=== PATIENT | male | born 1980 | race African-American/Black ===

== ENCOUNTER 2017-05-24 20:30 | Inpatient (IN) | payer OTHER ==
[~2017-05-24] VITALS: Ht 172.7 cm; Wt 98.7 kg
[2017-05-24 21:21] LABS: AMPHETAMINE NEGATIVE (500 ng/mL); BARBITURATES NEGATIVE (200 ng/mL); BENZODIAZEPINES NEGATIVE (150 ng/mL); BUPRENORPHINE NEGATIVE (10 ng/mL); COCAINE NEGATIVE (150 ng/mL); METHADONE NEGATIVE (200 ng/mL); METHAMPHETAMINE NEGATIVE (500 ng/mL); OPIATES (MORPHINE) NEGATIVE (100 ng/mL); OXYCODONE NEGATIVE (100 ng/mL); PHENCYCLIDINE NEGATIVE (25 ng/mL); PROPOXYPHENE NEGATIVE (300 ng/mL); THC CANNABINOIDS NEGATIVE (50 ng/mL); TRICYCLIC ANTIDEPRESSANTS NEGATIVE (300 ng/mL)
[2017-05-24 21:32] LABS: HEMATOCRIT 40.5 % (38.0-50.0); MCH 28.9 PG (29.0-34.0); MCHC 34.6 G/DL (30.0-36.0); MCV 83.7 FL (86-99); PLATELET COUNT 234 K/uL (156-360); RBC DIS.WIDTH-CV 11.9 % (11.8-14.6); RBC DIS.WIDTH-SD 36.3 % (39-53); RED BLOOD COUNT 4.84 M/uL (4.00-5.50); WHITE BLOOD COUNT 4.8 K/uL (4.1-10.2)
[2017-05-24 22:02] LABS: CHLORIDE 103 MEQ/L (99-109); CREATININE 1.1 MG/DL (0.6-1.3); GFR ESTIMATE (CALCULATED) > 59 mL/min/ (58.99-99999); GLUCOSE 90 mg/dL (70-99); POTASSIUM 3.3 MEQ/L (3.7-5.4); SODIUM 141 MEQ/L (136-147); UREA NITROGEN (BUN) 14 mg/dL (9-23)
[2017-05-24] MEDS ORDERED: ZOLOFT50 MG PO (23:43)
[2017-05-24] MEDS ORDERED: PROVIGIL200 MG PO (23:44)
[2017-05-25 00:05] VITALS: BP 139/86
[2017-05-25 00:15] LABS: SERUM ETHYL ALCOHOL < 10 mg/dL
[2017-05-25 08:10] VITALS: BP 129/82
[2017-05-25 15:25] VITALS: BP 139/82
[2017-05-26 09:44] VITALS: BP 137/86
== END 2017-05-26 11:05 | disposition home or self-care (01) | DRG 885 ==
LOC: EME 20:30 → 1WEST 23:05 → EDOF 23:05 → ENRESERV 23:32 → 1WEST 23:58
PROVIDERS: Emergency Medicine
DX: F33.9 Major depressive disorder, recurrent, unspecified (principal); F43.12 Post-traumatic stress disorder, chronic
CPT/HCPCS: 80048; 85027; 90837; 99281; 99285; G0480